=== PATIENT | female | born 1995 | race Caucasian/White ===

== ENCOUNTER 2023-08-31 21:45 | Emergency (ER) | payer OTHER, SELFPAY ==
--- NOTE | ~2023-08-31 | CT_ITS ---
EXAMINATION: CT lumbar spine wo con DATE: 09/01/2023 00:44 INDICATION: Low back pain. TECHNIQUE: Computed tomography (CT) of the lumbar spine was performed without intravenous contrast. A utomated exposure control and iterative reconstruction technique were employed. The dose-length produ ct was 771.00 mGy-cm. COMPARISON: None FINDINGS: There is 8 degrees levocurvature of lumbar spine. Vertebral body heights are normal. There is mildly decreased disc height at L5-S1. There is diffuse hepatic steatosis. The following disc leve ls are specifically discussed: L1-L2: The disc does not extend beyond the endplate margin. There is mild bilateral facet joint osteo arthritis. There is no neural foraminal stenosis. There is no central canal stenosis. L2-L3: The disc is bulging. There is mild bilateral facet joint osteoarthritis. There is mild bilater al neural foraminal stenosis. There is mild central canal stenosis. L3-L4: The disc is bulging. There is mild left facet joint osteoarthritis. There is mild bilateral ne ural foraminal stenosis. There is mild central canal stenosis. L4-L5: The disc is bulging. There is mild bilateral facet joint osteoarthritis. There is mild bilater al neural foraminal stenosis. There is mild central canal stenosis. L5-S1: The disc is bulging. There is moderate right and mild left facet joint osteoarthritis. There i s mild bilateral neural foraminal stenosis. There is mild central canal stenosis. IMPRESSION: 1. Mild lumbar spondylosis. 2. Diffuse hepatic steatosis. Reviewed, dictated and finalized at location A.
[2023-08-31 21:56] VITALS: BP 98/64; PULSE 87; RESP 16; TEMP 36.4; O2SAT 100
--- NOTE | 2023-08-31 23:44 | ED.GENADULT ---
HPI - General Adult General Chief complaint: Back Pain/Injury Stated complaint: Lower back pain Time Seen by Provider: 08/31/23 23:09 History of Present Illness HPI narrative: This is a 28 year old female presented lower back pain. She bent over to pet her cat and felt a sharp pain in her lower back. It is nonradiating 10 out 10 intensity improving. It is worse with movement. She has never had pain like this in the past. No fevers trauma, history of IV drug abuse, bowel incontinence urinary retention or lower extremity weakness. She took 2 500 mg Tylenol before arrival. Related Data Home Medications Medication Instructions Recorded Confirmed paroxetine HCl 20 mg tablet (Paxil) 20 mg PO QAM 08/31/23 Allergies Allergy/AdvReac Type Severity Reaction Status Date / Time No Known Allergies Allergy Verified 08/31/23 22:00 Exam Narrative: APPEARANCE: No apparent distress. Head: atraumatic. EYES: EOMI, NOSE: Atraumatic NECK: Trachea midline RESPIRATORY: No increased rate of breathing CARDIOVASCULAR: RRR, ABDOMINAL: Non-distended MUSCULOSKELETAl: Tenderness over the left paralumbar region. Able ambulate on her toes and heels. Neurovascularly intact. NEURO: Alert. No lower extremity weakness. SKIN:: Warm, dry. Normal color PSYCHIATRIC: Normal affect Course Vital Signs Vital signs: Vital Signs Temperature 97.6 F 08/31/23 21:56 Pulse Rate 87 08/31/23 21:56 Respiratory Rate 16 08/31/23 21:56 Blood Pressure 98/64 L 08/31/23 21:56 Pulse Oximetry 100 08/31/23 21:56 Oxygen Delivery Room Air 08/31/23 21:56 Temperature 97.6 F 08/31/23 21:56 Pulse Rate 87 08/31/23 21:56 Respiratory Rate 16 08/31/23 21:56 Blood Pressure 98/64 L 08/31/23 21:56 Pulse Oximetry 100 08/31/23 21:56 Oxygen Delivery Room Air 08/31/23 21:56 Medical Decision Making [facility] Narrative Medical decision making narrative: -Course: 28-year-old female presenting with lower back pain. No red flags on HPI. Patient has midline lumbar tenderness on exam. CT of the L-spine was unremarkable. Incidental hepatic steatosis which the patient was informed of. Treated with Toradol muscle relaxers dexamethasone and lidocaine. Discharged with primary care follow-up -DDX includes but is not limited to: Muscle spasm, lumbago, disc herniation, sciatica -Co-morbidities complicating care: Depression -Interventions: Toradol, Robaxin, dexamethasone, lidocaine patch -Shared decision making / Disposition: Discharge -RX Motrin Tylenol Robaxin Vital Signs Vital Signs: Vital Signs Temperature 97.6 F 08/31/23 21:56 Pulse Rate 87 08/31/23 21:56 Respiratory Rate 16 08/31/23 21:56 Blood Pressure 98/64 L 08/31/23 21:56 Pulse Oximetry 100 08/31/23 21:56 Oxygen Delivery Room Air 08/31/23 21:56 Temperature 97.6 F 08/31/23 21:56 Pulse Rate 87 08/31/23 21:56 Respiratory Rate 16 08/31/23 21:56 Blood Pressure 98/64 L 08/31/23 21:56 Pulse Oximetry 100 08/31/23 21:56 Oxygen Delivery Room Air 08/31/23 21:56 Lab Data Labs: UCG Bedside Result Negative Reference Range: Negative Discharge Plan Discharge Clinical Impression: Strain of lumbar region, Fatty liver Patient Disposition: Home, Self-Care Condition: Stable Instructions: Antibiotic Form, Acute Low Back Pain (ED) Additional Instructions: Please take medications as prescribed. Please follow-up your primary care physician. Return if she develops inability to urinate, bowel incontinence or weakness to lower extremities. You also have hepatic steatosis or fatty liver. Please follow-up with your primary care physician for further management. Prescriptions: New acetaminophen 500 mg tablet 1,000 mg PO TID PRN (Reason: ziyad) 7 Days Qty: 42 0RF ibuprofen 800 mg tablet 800 mg PO TID PRN (Reason: pain) 7 Days Qty: 21 0RF lidoc
[2023-09-01] MEDS: KETOROLAC 15 MG/ML VIAL (*BKC) IV PUSH
[2023-09-01] MEDS: LIDOCAINE 5% PATCH 1 PATCH TRANSDERM
[2023-09-01] MEDS: dexAMETHasone SOD PHOS INJ 10 MG/ML 1 ML VIAL IM (00:01)
[2023-09-01] MEDS: methocarbamoL 750 MG TABLET 1500 MG PO (00:01)
[2023-09-01 01:42] VITALS: BP 107/68; PULSE 84; RESP 17; TEMP 36.7; O2SAT 100
== END 2023-09-01 01:43 | disposition home or self-care (01) ==
PROVIDERS: Emergency Provider Emergency Medicine
DX: S39.012A Strain of muscle, fascia and tendon of lower back, initial encounter (principal); T14.90XA Injury, unspecified, initial encounter; K76.0 Fatty (change of) liver, not elsewhere classified
CPT/HCPCS: 72131; 81025; 96372; 96374; 99284; A9270; J1100; J1885